=== PATIENT | female | born 1945 | race American Indian/Alaskan Native ===

== ENCOUNTER 2018-04-02 13:18 | Emergency (ER) | payer MEDICARE ==
[2018-04-02 14:05] LABS: Basophils # (Auto) 0.1 K/mm3 (0.0-0.1); Basophils % (Auto) 0.7 % (0.0-1.8); Eosinophils # (Auto) 0.1 K/mm3 (0.0-0.4); Eosinophils % (Auto) 0.8 % (0.0-4.3); Hematocrit 40.7 % (30.3-42.9); Lymphocytes # (Auto) 2.7 K/mm3 (1.2-5.4); Lymphocytes % (Auto) 29.9 % (13.4-35.0); Mean Corpuscular HGB Conc 34 % (30-34); Mean Corpuscular Hemoglobin 35 pg (28-32); Mean Corpuscular Volume 103 fl (79-97); Monocytes # (Auto) 0.5 K/mm3 (0.0-0.8); Monocytes % (Auto) 5.9 % (0.0-7.3); Platelet Count 186 K/mm3 (140-440); Red Blood Count 3.96 M/mm3 (3.65-5.03); Red Cell Distribution Width 13.4 % (13.2-15.2)
[2018-04-02 14:16] LABS: INR 0.87 (0.87-1.13); Partial Thromboplastin Time 28.1 Sec. (24.2-36.6)
[2018-04-02 14:21] LABS: BUN/Creatinine Ratio 18; Blood Urea Nitrogen 14 mg/dL (7-17); Calcium 9.7 mg/dL (8.4-10.2); Hemolysis Index 36
--- NOTE | 2018-04-02 15:21 | Cat Scan Report ---
CT HEAD WITHOUT CONTRAST: HISTORY: Neurological deficit. TECHNIQUE: Sequential 2.5mm CT images. COMPARISON: none. FINDINGS: Cerebral Parenchyma: Within normal limits. Cerebellum: Within normal limits. Brainstem: Within normal limits. Ventricles: Normal. Sella: Normal. Extra-axial spaces: Normal. Basal Cisterns: Normal. Intracranial Hemorrhage: None. Midline Shift: None. Calvarium: Normal. Sinuses: Normal. Mastoid Air Cells: Normal. Visualized Orbits: Normal. IMPRESSION: Cranial CT scan within normal limits.
[2018-04-02] MEDS ORDERED: SUBLIMAZE IV ONE (15:55)
[2018-04-02] MEDS ORDERED: DECADRON IV ONE (15:55)
--- NOTE | 2018-04-02 15:57 | Emergency Department Report ---
ED General Adult HPI - General Chief complaint: Neuro Symptoms/Deficit Stated complaint: WEAKNESS/BODYPAIN/LEFT LEG NUMBNESS Time Seen by Provider: 04/02/18 14:49 Source: patient, RN notes reviewed, old records reviewed Mode of arrival: Ambulatory Limitations: Physical Limitation - History of Present Illness Initial comments: This is a 72-year-old female who is unknown to this provider previously. The patient presents to the ER with a complaint of weakness and malaise, fatigue. Her primary care doctor is Dr. Henry She reports 1 week of burning left leg pain, acute on chronic 4 years. She also reports generalized weakness, and right lower extremity weakness which she thinks started yesterday. She has chronic paralumbar back pain which radiates down her left lower extremity. She denies bladder or bowel retention/ incontinence and satellite anesthesia. The patient's daughter is accompanying the patiEnt, and she indicates that the patient had an episode of confusion, and slurred speech/nonsensical speech. The patient has no recollection of the event. The patient's pain is burning and sharp, increases with palpation and range of motion of the left lower extremity, and decreased with fentanyl, hydromorphone -: Gradual Location: back, left, right, lower extremity Quality: burning Consistency: intermittent Improves with: medication, rest Worsens with: movement Associated Symptoms: confusion, malaise, weakness. denies: chest pain, cough, diaphoresis, fever/chills, headaches, loss of appetite, nausea/vomiting - Related Data Home Medications Medication Instructions Recorded Confirmed Last Taken ALBUTEROL NEB's [Proventil] 2.5 mg IH QID PRN 04/02/18 04/02/18 Unknown Amlodipine Besylate/Benazepril 0.5 tab PO QDAY 04/02/18 04/02/18 Unknown [Lotrel 5-20 mg Capsule] AtorvaSTATin [Lipitor] 10 mg PO QHS 04/02/18 04/02/18 Unknown Fluticasone [Flonase] 1 spray NS QDAY 04/02/18 04/02/18 Unknown Gabapentin [Neurontin] 300 mg PO BID 04/02/18 04/02/18 04/02/18 Metformin HCl [Glucophage] 500 mg PO QDAY 04/02/18 04/02/18 Unknown Omeprazole 20 mg PO QDAY 04/02/18 04/02/18 Unknown Potassium Chloride [Klor-Con M10] 10 meq PO QDAY 04/02/18 04/02/18 04/02/18 Zolpidem [Ambien] 10 mg PO QHS 04/02/18 04/02/18 Unknown glipiZIDE [Glipizide] 10 mg PO QDAY 04/02/18 04/02/18 04/02/18 traMADol [Ultram] 50 mg PO TID 04/02/18 04/02/18 Unknown Previous Rx's Medication Instructions Recorded Last Taken Type Aspirin [Aspirin BABY CHEW TAB] 81 mg PO QDAY #30 tab.chew 04/02/18 Unknown Rx Allergies Allergy/AdvReac Type Severity Reaction Status Date / Time No Known Allergies Allergy Unverified 04/02/18 13:32 ED Review of Systems ROS: Stated complaint: WEAKNESS/BODYPAIN/LEFT LEG NUMBNESS Other details as noted in HPI Comment: All other systems reviewed and negative Constitutional: malaise, weakness. denies: fever Eyes: denies: eye discharge ENT: denies: epistaxis Respiratory: denies: cough Cardiovascular: denies: chest pain Gastrointestinal: denies: abdominal pain Musculoskeletal: arthralgia, myalgia Neurological: weakness Psychiatric: anxiety ED Past Medical Hx - Past Medical History Previous Medical History?: Yes Hx Dementia: Yes Additional medical history: never damage - Surgical History Past Surgical History?: No - Social History Smoking Status: Never Smoker Substance Use Type: None - Medications Home Medications: Home Medications Medication Instructions Recorded Confirmed Last Taken Type ALBUTEROL NEB's [Proventil] 2.5 mg IH QID PRN 04/02/18 04/02/18 Unknown History Amlodipine Besylate/Benazepril 0.5 tab PO QDAY 04/02/18 04/02/18 Unknown History [Lotrel 5-20 mg Capsule] Aspirin [Aspirin BABY CHEW TAB] 81 mg PO QDAY #30 tab.chew 04/02/18 Unknown Rx AtorvaSTATin [Lipitor] 10 mg PO QHS 04/02/18 04/02/18 Unknown History Fluticasone [Flonase] 1 spray NS QDAY 04/02/18 04/02/18 Unknown History Gabapentin [Neurontin] 300 mg PO BID 04/02/18 04/02/18 04/02/18 History Metformin HCl [Glucophage] 500 mg PO QDAY 04/02/18 04/02/18 Unknown History Omeprazole 20 mg PO QDAY 04/02/18 04/02/18 Unknown History Potassium Chloride [Klor-Con M10] 10 meq PO QDAY 04/02/18 04/02/18 04/02/18 History Zolpidem [Ambien] 10 mg PO QHS 04/02/18 04/02/18 Unknown History glipiZIDE [Glipizide] 10 mg PO QDAY 04/02/18 04/02/18 04/02/18 History traMADol [Ultram] 50 mg PO TID 04/02/18 04/02/18 Unknown History ED Physical Exam - General Limitations: Physical Limitation General appearance: alert, in no apparent distress - Head Head exam: Present: atraumatic, normocephalic - Eye Eye exam: Present: normal appearance, EOMI. Absent: nystagmus - ENT ENT exam: Present: normal exam, normal orophraynx, mucous membranes moist, normal external ear exam - Neck Neck exam: Present: normal inspection, full ROM - Respiratory Respiratory exam: Present: normal lung sounds bilaterally. Absent: respiratory distress - Cardiovascular Cardiovascular Exam: Present: regular rate, normal rhythm, normal heart sounds. Absent: bradycardia, tachycardia, irregular rhythm, systolic murmur, diastolic murmur, rubs, gallop - GI/Abdominal GI/Abdominal exam: Present: soft, normal bowel sounds. Absent: distended, tenderness, guarding, rebound, rigid, pulsatile mass - Extremities Exam Extremities exam: Present: normal inspection, other (there is allodynia appreciated to the left lower extremity there is no redness, pus, streaking. Compartment soft, 2+ pulses noted in the bilateral upper, lower extremities.). Absent: pedal edema, joint swelling, calf tenderness - Back Exam Back exam: Present: normal inspection, paraspinal tenderness, vertebral tenderness. Absent: tenderness, CVA tenderness (R) - Neurological Exam Neurological exam: Present: alert, oriented X3, CN II-XII intact, motor sensory deficit (there is 5 and a 5 strength bilateral upper extremities, left lower extremity. Sensation is intact to light touch bilateral upper, lower extremities. There is 3 out of 5 strength right lower extremity, with downgoing plantar reflexes.) - Psychiatric Psychiatric exam: Present: anxious - Skin Skin exam: Present: warm, dry, intact, normal color. Absent: rash ED Course Vital Signs 04/02/18 04/02/18 04/02/18 13:21 13:22 13:40 Temperature 98.4 F Pulse Rate 94 H 96 H Respiratory 12 Rate Blood Pressure 150/67 150/67 Blood Pressure [Left] O2 Sat by Pulse 100 99 99 Oximetry 04/02/18 04/02/18 04/02/18 13:46 14:00 14:16 Temperature Pulse Rate 92 H 78 78 Respiratory 39 H 22 17 Rate Blood Pressure 148/104 148/104 132/54 Blood Pressure [Left] O2 Sat by Pulse 100 99 96 Oximetry 04/02/18 04/02/18 04/02/18 14:30 14:46 15:23 Temperature Pulse Rate 72 76 Respiratory 13 15 Rate Blood Pressure 132/54 132/54 132/54 Blood Pressure [Left] O2 Sat by Pulse 97 96 99 Oximetry 04/02/18 04/02/18 04/02/18 15:30 15:46 16:00 Temperature Pulse Rate 73 101 H 83 Respiratory 17 17 22 Rate Blood Pressure 144/60 144/60 144/60 Blood Pressure [Left] O2 Sat by Pulse 98 98 100 Oximetry 04/02/18 04/02/18 04/02/18 16:15 16:16 16:30 Temperature 98.6 F Pulse Rate 69 69 Respiratory 14 16 Rate Blood Pressure 144/60 144/60 Blood Pressure [Left] O2 Sat by Pulse 99 96 Oximetry 04/02/18 04/02/18 04/02/18 16:46 17:00 17:16 Temperature Pulse Rate 66 65 70 Respiratory 17 16 14 Rate Blood Pressure 144/60 140/63 140/63 Blood Pressure [Left] O2 Sat by Pulse 97 96 94 Oximetry 04/02/18 19:47 Temperature Pulse Rate 64 Respiratory 20 Rate Blood Pressure Blood Pressure 164/69 [Left] O2 Sat by Pulse 97 Oximetry - Reevaluation(s) Reevaluation #1: 04/02/18 19:41 Differential diagnosis, including but not limited to: Stroke, spinal cord compression, pneumonia, urinary tract infection, neuropathic pain Assessment and plan: 72-year-old female with resolved confusion and speech difficulty, now with right lower extremity weakness, presented more than 4.5 hours after symptom onset, last known well time was sometime yesterday, at least 24 hours prior to presentation as per family. Therefore not endovascular candidate, therefore not a TPA candidate. Patient is currently awake and alert and oriented, follows commands, and is quite lucid. She is not clinically encephalopathic at this time. She was afebrile rectally. Urinalysis and x-ray of the chest did not suggest obvious infectious etiology. MR of the lumbar spine has been performed and interpretation is pending. I recommended admission to the hospital for further evaluation for possible strokelike symptoms. Family is discussing at this time. Care will be transferred to the [facility] the ER physician, Dr. Portillo, to follow-up on imaging. Reevaluation #2: 04/02/18 19:57 MRI of the lumbar spine is negative for acute surgical process. C 04/02/18 20:05 Reevaluation #3: 04/02/18 20:05 I recommended admission to the patient for further evaluation for possible subacute stroke. The patient is declining this, and she is going to sign out AGAINST MEDICAL ADVICE. The patient is alert and oriented 3, clinically sober , and exhibits decision-making capacity. The risks of leaving AGAINST MEDICAL ADVICE, including , disability, paralysis, loss of quality of life were discussed with the patient and her daughter, while the nurse VIPUL GARCIA was present in the next room. Patient was able to articulate the risks in her own words of leaving, and exhibited decision-making capacity. She was strongly encouraged to return to the ER right away if and when she changed her mind. 04/02/18 20:06 ED Medical Decision Making - Lab Data Result diagrams: 04/02/18 13:52 04/02/18 13:52 Vital Signs 04/02/18 04/02/18 04/02/18 13:21 13:22 13:40 Temperature 98.4 F Pulse Rate 94 H 96 H Respiratory 12 Rate Blood Pressure 150/67 150/67 O2 Sat by Pulse 100 99 99 Oximetry 04/02/18 04/02/18 04/02/18 13:46 14:00 14:16 Temperature Pulse Rate 92 H 78 78 Respiratory 39 H 22 17 Rate Blood Pressure 148/104 148/104 132/54 O2 Sat by Pulse 100 99 96 Oximetry 04/02/18 04/02/18 04/02/18 14:30 14:46 15:23 Temperature Pulse Rate 72 76 Respiratory 13 15 Rate Blood Pressure 132/54 132/54 132/54 O2 Sat by Pulse 97 96 99 Oximetry 04/02/18 04/02/18 04/02/18 15:30 15:46 16:00 Temperature Pulse Rate 73 101 H 83 Respiratory 17 17 22 Rate Blood Pressure 144/60 144/60 144/60 O2 Sat by Pulse 98 98 100 Oximetry 04/02/18 04/02/18 04/02/18 16:15 16:16 16:30 Temperature 98.6 F Pulse Rate 69 69 Respiratory 14 16 Rate Blood Pressure 144/60 144/60 O2 Sat by Pulse 99 96 Oximetry 04/02/18 04/02/18 04/02/18 16:46 17:00 17:16 Temperature Pulse Rate 66 65 70 Respiratory 17 16 14 Rate Blood Pressure 144/60 140/63 140/63 O2 Sat by Pulse 97 96 94 Oximetry Lab Results 04/02/18 04/02/18 04/02/18 Range/Units 13:28 13:52 13:52 WBC 9.0 (4.5-11.0) K/mm3 RBC 3.96 (3.65-5.03) M/mm3 Hgb 14.0 (10.1-14.3) gm/dl Hct 40.7 (30.3-42.9) % MCV 103 H (79-97) fl MCH 35 H (28-32) pg MCHC 34 (30-34) % RDW 13.4 (13.2-15.2) % Plt Count 186 (140-440) K/mm3 Lymph % (Auto) 29.9 (13.4-35.0) % [place] % (Auto) 5.9 (0.0-7.3) % Eos % (Auto) 0.8 (0.0-4.3) % Baso % (Auto) 0.7 (0.0-1.8) % Lymph # 2.7 (1.2-5.4) K/mm3 [place] # 0.5 (0.0-0.8) K/mm3 Eos # 0.1 (0.0-0.4) K/mm3 Baso # 0.1 (0.0-0.1) K/mm3 Seg Neutrophils % 62.7 (40.0-70.0) % Seg Neutrophils # 5.6 (1.8-7.7) K/mm3 PT 12.2 (12.2-14.9) Sec. INR 0.87 (0.87-1.13) APTT 28.1 (24.2-36.6) Sec. Thrombin Time (15.1-19.6) Sec. Sodium (137-145) mmol/L Potassium (3.6-5.0) mmol/L Chloride (98-107) mmol/L Carbon Dioxide (22-30) mmol/L Anion Gap mmol/L BUN (7-17) mg/dL Creatinine (0.7-1.2) mg/dL Estimated GFR ml/min BUN/Creatinine Ratio % Glucose (65-100) mg/dL POC Glucose 287 H (70-105) Calcium (8.4-10.2) mg/dL Total Creatine Kinase (30-135) units/L Troponin T (0.00-0.029) ng/mL TSH (0.270-4.200) mlU/mL 04/02/18 04/02/18 04/02/18 Range/Units 13:52 13:52 16:02 WBC (4.5-11.0) K/mm3 RBC (3.65-5.03) M/mm3 Hgb (10.1-14.3) gm/dl Hct (30.3-42.9) % MCV (79-97) fl MCH (28-32) pg MCHC (30-34) % RDW (13.2-15.2) % Plt Count (140-440) K/mm3 Lymph % (Auto) (13.4-35.0) % [place] % (Auto) (0.0-7.3) % Eos % (Auto) (0.0-4.3) % Baso % (Auto) (0.0-1.8) % Lymph # (1.2-5.4) K/mm3 [place] # (0.0-0.8) K/mm3 Eos # (0.0-0.4) K/mm3 Baso # (0.0-0.1) K/mm3 Seg Neutrophils % (40.0-70.0) % Seg Neutrophils # (1.8-7.7) K/mm3 PT (12.2-14.9) Sec. INR (0.87-1.13) APTT (24.2-36.6) Sec. Thrombin Time 14.3 L (15.1-19.6) Sec. Sodium 135 L (137-145) mmol/L Potassium 5.1 H (3.6-5.0) mmol/L Chloride 95.7 L (98-107) mmol/L Carbon Dioxide 25 (22-30) mmol/L Anion Gap 19 mmol/L BUN 14 (7-17) mg/dL Creatinine 0.8 (0.7-1.2) mg/dL Estimated GFR > 60 ml/min BUN/Creatinine Ratio 18 % Glucose 294 H (65-100) mg/dL POC Glucose (70-105) Calcium 9.7 (8.4-10.2) mg/dL Total Creatine Kinase 42 (30-135) units/L Troponin T < 0.010 (0.00-0.029) ng/mL TSH (0.270-4.200) mlU/mL //18 Range/Units 16:02 WBC (4.5-11.0) K/mm3 RBC (3.65-5.03) M/mm3 Hgb (10.1-14.3) gm/dl Hct (30.3-42.9) % MCV (79-97) fl MCH (28-32) pg MCHC (30-34) % RDW (13.2-15.2) % Plt Count (140-440) K/mm3 Lymph % (Auto) (13.4-35.0) % [place] % (Auto) (0.0-7.3) % Eos % (Auto) (0.0-4.3) % Baso % (Auto) (0.0-1.8) % Lymph # (1.2-5.4) K/mm3 [place] # (0.0-0.8) K/mm3 Eos # (0.0-0.4) K/mm3 Baso # (0.0-0.1) K/mm3 Seg Neutrophils % (40.0-70.0) % Seg Neutrophils # (1.8-7.7) K/mm3 PT (12.2-14.9) Sec. INR (0.87-1.13) APTT (24.2-36.6) Sec. Thrombin Time (15.1-19.6) Sec. Sodium (137-145) mmol/L Potassium (3.6-5.0) mmol/L Chloride (98-107) mmol/L Carbon Dioxide (22-30) mmol/L Anion Gap mmol/L BUN (7-17) mg/dL Creatinine (0.7-1.2) mg/dL Estimated GFR ml/min BUN/Creatinine Ratio % Glucose (65-100) mg/dL POC Glucose (70-105) Calcium (8.4-10.2) mg/dL Total Creatine Kinase (30-135) units/L Troponin T (0.00-0.029) ng/mL TSH 1.340 (0.270-4.200) mlU/mL - EKG Data -: EKG Interpreted by Me EKG shows normal: sinus rhythm, axis, intervals, QRS complexes, ST-T waves - EKG Data When compared to previous EKG there are: previous EKG unavailable 04/02/18 19:41 Sinus, 75 bpm, normal axis, normal intervals, T-wave inversion V2, abnormal EKG , not a stemi - Radiology Data Radiology results: report reviewed, image reviewed Noncontrast CT scan of the brain is negative. X-ray of the chest is negative. Critical care attestation.: If time is entered above; I have spent that time in minutes in the direct care of this critically ill patient, excluding procedure time. ED Disposition Clinical Impression: Right leg weakness Speech abnormality Qualifiers: Speech disturbance type: unspecified speech disturbance Qualified Code(s): R47.9 - Unspecified speech disturbances Disposition: 07 LEFT AGAINST MED ADVICE Is pt being admited?: No Does the pt Need Aspirin: No Condition: Undetermined Instructions: Transient Ischemic Attack (ED) Additional Instructions: As we discussed, you have left the hospital/emergency room AGAINST MEDICAL ADVICE. By leaving, you risked , disability, paralysis, permanent loss of quality of life. The ER is open 24 hours a day, 7 days a week. It never closes. Please return to the emergency room right away if and when you change your mind. If you decide not to return to the emergency room, please follow-up with the listed physician referrals as soon as possible. Do not drive or operate motor vehicles and was cleared to do so by her primary care doctor or neurology specialist Referrals: PRIMARY CAREMD [Primary Care Provider] - 3-5 Days PASCALE NUNO MD [Staff Physician] - 3-5 Days GLORIA BARBOZA MD [Referring] - 3-5 Days FROYLAN GRIMALDO MD [Staff Physician] - 3-5 Days
--- NOTE | 2018-04-02 17:07 | XRay Report ---
FINAL REPORT PROCEDURE: Chest. TECHNIQUE: Portable AP view. HISTORY: Weakness, cough. COMPARISON: No prior studies are available for comparison. FINDINGS: The heart and mediastinum appear normal. There is mild tortuosity and calcification in the thoracic aorta. The lungs are clear and well expanded. There are no pleural effusions. The soft tissues are unremarkable. The regional skeleton appears intact. IMPRESSION: No evidence of acute disease.
[2018-04-02 19:48] VITALS: BP 164/69
[2018-04-02 19:54] LABS: Bilirubin,Urine NEG (Negative); Blood,Urine NEG (Negative); Color,Urine Yellow (Yellow); Mucus,Urine FEW /HPF; Protein,Urine <15 mg/dL mg/dL (Negative)
--- NOTE | 2018-04-02 19:56 | Magnetic Resonance Report ---
FINAL REPORT PROCEDURE: MRI lumbar spine without contrast. TECHNIQUE: Magnetic resonance imaging of the lumbar spine was performed using standard pulse sequences without contrast material. CPT 45334 HISTORY: Right lower extremity weakness. COMPARISON: No prior studies are available for comparison. FINDINGS: The lumbar vertebrae have normal height and alignment. There are no fractures. There is no significant spondylolisthesis. There is normal signal intensity from the bone marrow. The conus medullaris appears normal. The L1-2 through L3-4 levels appear normal. There are no disc protrusions. There is no spinal canal stenosis. The neural foramina are widely patent. At L4-5 there is minimal grade 1 spondylolisthesis. There is no disc protrusion. There is some laxity of the ligamentum flavum. 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 Together this causes a mild degree of spinal canal narrowing. The neural foramina are widely patent however. At L5-S1 there is mild disc space narrowing. There is no disc protrusion. There is no spinal canal stenosis. The patient has had a posterior surgical fusion done at L5 and S1. There is mild bilateral neural foraminal narrowing. IMPRESSION: Mild spinal canal narrowing and minimal spondylolisthesis at L4-5. Previous posterior surgical fusion at L5-S1.
== END 2018-04-02 20:56 | disposition left against medical advice (07) ==
LOC: ED 13:18
DX: R53.1 Weakness (principal); R47.9 Unspecified speech disturbances; F03.90 Unspecified dementia, unspecified severity, without behavioral disturbance, psychotic disturbance, mood disturbance, and anxiety
CPT/HCPCS: 36415; 70450; 71045; 72148; 80048; 81001; 82550; 82962; 84443; 84484; 85025; 85610; 85670; 85730; 93005; 93010; 96374; 96375; 99285; J1100; J3010